=== PATIENT | male | born 1990 | race Caucasian/White ===

== ENCOUNTER 2017-03-28 14:00 | Emergency (ER) | payer OTHER ==
[2017-03-28 14:08] VITALS: PULSE 90; BMI 25.8
--- NOTE | 2017-03-28 14:31 | PDOC ---
History of Present Illness - History of Present Illness Initial Comments: 03/28/17 14:41 The patient is a 26 year old male, with a significant past medical history of pancreatitis, who presents to the emergency department with subjective fever, chills, abdominal pain, and diffuse body aches for a couple of weeks. He states he "feels hot", but states he has been "shivering and shaking nonstop." He reports taking ibuprofen this morning at 6:30AM for his fever. He reports mild, diffuse abdominal pain, but denies any aggravating or alleviating factors of his pain. He denies recent travels. He denies sick contact. The patient is afebrile at this time. He denies chest pain, shortness of breath, headache and dizziness. He denies nausea, vomit, diarrhea and constipation. He denies dysuria, frequency, urgency and hematuria. Allergies: NKDA, apples Past surgical history: appendectomy, cholecystectomy Social history: denies toxic habits <Nita Rogers - Last Filed: 03/28/17 14:48> <Lady Ng - Last Filed: 03/28/17 16:52> - General Chief Complaint: SIRS, Suspected/Possible Stated Complaint: FEVER Time Seen by Provider: 03/28/17 14:13 Past History <Nita Rogers - Last Filed: 03/28/17 14:48> - Past Medical History GI Disorders: Yes (PANCREATITIS) - Surgical History Appendectomy: Yes Cholecystectomy: Yes - Immunization History Td Vaccination: (unknown) Immunization Up to Date: Yes - Psycho/Social/Smoking Cessation Hx Anxiety: No Suicidal Ideation: No Smoking Status: No Smoking History: Never smoked Years of Tobacco Use: 0 Number of Cigarettes Smoked Daily: 0 Cigars Per Day: 0 Hx Alcohol Use: No Drug/Substance Use Hx: No Substance Use Type: None <Lady Ng - Last Filed: 03/28/17 16:52> - Past Medical History Allergies/Adverse Reactions: Allergies Allergy/AdvReac Type Severity Reaction Status Date / Time apple Allergy Itching Verified 03/28/17 14:08 No Known Drug Allergies Allergy Verified 03/28/17 14:08 Home Medications: Ambulatory Orders No Home Medications 0 dose .ROUTE UTDICT 12/25/12 Review of Systems - Review of Systems Able to Perform ROS?: Yes Comments:: 03/28/17 14:45 GENERAL/CONSTITUTIONAL: (+) fever, chills, generalized weakness. HEAD, EYES, EARS, NOSE AND THROAT: No change in vision. No ear pain or discharge. No sore throat. CARDIOVASCULAR: No chest pain or shortness of breath. RESPIRATORY: No cough, wheezing, or hemoptysis. GASTROINTESTINAL: (+) diffuse, mild abdominal pain. No nausea, vomiting, diarrhea or constipation. GENITOURINARY: No dysuria, frequency, or change in urination. MUSCULOSKELETAL: No joint or muscle swelling or pain. No neck or back pain. SKIN: No rash NEUROLOGIC: No headache, vertigo, loss of consciousness, or change in strength/ sensation. ENDOCRINE: No increased thirst. No abnormal weight change. HEMATOLOGIC/LYMPHATIC: No anemia, easy bleeding, or history of blood clots. ALLERGIC/IMMUNOLOGIC: No hives or skin allergy. <Nita Rogers - Last Filed: 03/28/17 14:48> *Physical Exam - Vital Signs Last Vital Signs Temp Pulse Resp BP Pulse Ox 98.6 F 90 20 130/74 100 03/28/17 14:03 03/28/17 14:03 03/28/17 14:03 03/28/17 14:03 03/28/17 14:03 <Nita Rogers - Last Filed: 03/28/17 14:48> - Vital Signs Last Vital Signs Temp Pulse Resp BP Pulse Ox 98.6 F 90 20 130/74 100 03/28/17 14:03 03/28/17 14:03 03/28/17 14:03 03/28/17 14:03 03/28/17 14:03 - Physical Exam Comments: GENERAL: Awake, alert, and fully oriented. Wrapped in multiple blankets, shaking in his extremities. HEAD: No signs of trauma EYES: PERRLA, EOMI, sclera anicteric, conjunctiva clear ENT: Auricles normal inspection, hearing grossly normal, nares patent, oropharynx clear without exudates. Moist mucosa NECK: Normal ROM, supple, no lymphadenopathy, JVD, or masses LUNGS: Breath sounds equal, clear to auscultation bilaterally. No wheezes, and no crackles HEART: Regular rate and rhythm, normal S1 and S2, no murmurs, rubs or gallops ABDOMEN: Soft, nontender, normoactive bowel sounds. No guarding, no rebound. No masses EXTREMITIES: Normal range of motion, no edema. No clubbing or cyanosis. No cords, erythema, or tenderness NEUROLOGICAL: Cranial nerves II through XII grossly intact. Normal speech, normal gait SKIN: Warm, Dry, normal turgor, no rashes or lesions noted. <Lady Ng - Last Filed: 03/28/17 16:52> ED Treatment Course - LABORATORY CBC & Chemistry Diagram: 03/28/17 15:00 03/28/17 15:00 <Lady Ng - Last Filed: 03/28/17 16:52> Medical Decision Making - Medical Decision Making 03/28/17 16:52 Pt reassessed. Sitting upright in bed, reports resolution of symptoms. Tremors have resolved. Denies any symptoms at present. Eating a sandwich. Stable for DC. We discussed the mild transaminitis, will f/u with PMD. <Lady Ng - Last Filed: 03/28/17 16:52> *DC/Admit/Observation/Transfer - Attestations Scribe Attestion: 03/28/17 14:48 Documentation prepared by Nita Rogers, acting as medical collections representative for Lady Ng MD, <Nita Rogers - Last Filed: 03/28/17 14:48> - Discharge Dispostion Admit: No <Lady Ng - Last Filed: 03/28/17 16:52> Diagnosis at time of Disposition: Fever Qualifiers: Fever type: unspecified Qualified Code(s): R50.9 - Fever, unspecified - Discharge Dispostion Disposition: HOME Condition at time of disposition: Improved - Referrals Referrals: Luzma Kay [Primary Care Provider] - - Patient Instructions Printed Discharge Instructions: DI for Fever (Symptom) -- Adult
[2017-03-28] MEDS ORDERED: KETOROLAC TROMETHAMINE 30 MG/1 ML VIAL IVPUSH ONE (14:37)
[2017-03-28] MEDS ORDERED: SODIUM CHLORIDE 1,000 ML IV STA (14:37)
[2017-03-28] MEDS ORDERED: KETOROLAC TROMETHAMINE 30 MG/1 ML VIAL ONE (14:47)
[2017-03-28 15:08] LABS: MCH 30.5 pg (25.7-33.7); MCHC 34.8 g/dl (32.0-35.9); MEAN CELL VOLUME 87.6 fl (80-96); MEAN PLT VOLUME 10.9 fl (7.5-11.1); RDW 12.9 % (11.9-15.9); WHITE BLOOD COUNT 10.4 K/mm3 (4.0-10.0)
[2017-03-28 15:30] LABS: ALBUMIN 3.7 g/dl (3.4-5.0); ANION GAP 11 (8-16); BILIRUBIN,TOTAL 0.9 mg/dL (0.2-1.0); CALCIUM 8.7 mg/dL (8.5-10.1); CO2 24 mmol/L (21-32); COCKROFT - GAULT 118.55; CREATININE 1.1 mg/dL (0.7-1.3); GLUCOSE,RANDOM 96 mg/dL (74-106); SGOT/AST 67 U/L (15-37); SGPT/ALT 110 U/L (12-78); TOT PROT 6.8 g/dl (6.4-8.2)
[2017-03-28 15:31] LABS: ALK PHOS 118 U/L (45-117)
[2017-03-28 15:43] VITALS: TEMP 99.6
[2017-03-28 15:46] LABS: URINE APPEARANCE CLEAR; URINE BILIRUBIN NEGATIVE (NEGATIVE); URINE COLOR YELLOW; URINE GLUCOSE (UA) NEGATIVE (NEGATIVE); URINE KETONE 1+ (NEGATIVE); URINE LEUK ESTERASE NEGATIVE (NEGATIVE); URINE NITRITE NEGATIVE (NEGATIVE); URINE PROTEIN NEGATIVE (NEGATIVE); URINE UROBILINOGEN NEGATIVE E.U./dl (0.2-1.0)
[2017-03-28 15:53] LABS: URINE BLOOD 1+ (NEGATIVE)
[2017-03-28 15:54] LABS: URINE BACTERIA RARE /hpf (NONE SEEN); URINE MUCUS RARE; URINE RBC <1 /hpf (0-3); URINE WBC 3 /hpf (3-5)
[2017-03-28 16:18] LABS: METAMYELOCYTE 4 % (0-2)
[2017-03-28 16:19] LABS: PLATELET ESTIMATE SLT DECREASED (NORMAL)
--- NOTE | 2017-03-28 16:22 | EKG ---
Test Reason : Blood Pressure : / mmHG Vent. Rate : 078 BPM Atrial Rate : 078 BPM P-R Int : 130 ms QRS Dur : 092 ms QT Int : 382 ms P-R-T Axes : 017 059 -01 degrees QTc Int : 435 ms NORMAL SINUS RHYTHM NONSPECIFIC T WAVE ABNORMALITY ABNORMAL ECG NO PREVIOUS ECGS AVAILABLE Confirmed by ROVERTO ROSAS MD ([id number]) on 03/28/2017 4:22:27 PM Referred By: Confirmed By:ROVERTO ROSAS MD
[2017-03-28 17:08] VITALS: BP 128/69
== END 2017-03-28 17:08 | disposition home or self-care (01) ==
LOC: JER 14:00
PROC: 3E0333Z Introduction of Anti-inflammatory into Peripheral Vein, Percutaneous Approach (ICD-10-PCS; principal; 2017-03-28)
DX: R50.9 Fever, unspecified (principal); Z87.19 Personal history of other diseases of the digestive system
CPT/HCPCS: 36415; 71010-TC; 80053; 81003; 81015; 83605; 83690; 85025; 87040; 87086; 93005; 93010; 96374; 99285-25

== ENCOUNTER 2021-12-09 05:14 | Emergency (ER) | payer OTHER ==
[2021-12-09 05:30] VITALS: TEMP 97.9; BMI 22.9
[2021-12-09] MEDS ORDERED: ACETAMINOPHEN 1000 MG/100 ML BAG IVPB ONE (05:37)
[2021-12-09] MEDS ORDERED: SODIUM CHLORIDE 0.9% 500 ML INFUS.BAG IV ONE (05:38)
[2021-12-09] MEDS ORDERED: LORazepam 2 MG/ML SDV VIAL IVPUSH ONE (05:38)
[2021-12-09] MEDS ORDERED: ONDANSETRON 4 MG/2 ML VIAL IVPUSH ONE (05:39)
[2021-12-09] MEDS ORDERED: ACETAMINOPHEN INJECTION 100 ML IVPB ONE (05:44)
[2021-12-09] MEDS ORDERED: ONDANSETRON 4 MG/2 ML VIAL ONE (05:44)
[2021-12-09 05:52] LABS: HEMATOCRIT 44.2 % (35.4-49); HEMOGLOBIN 14.7 GM/dL (11.7-16.9); MCH 30.6 pg (25.7-33.7); MCHC 33.3 g/dl (32.0-35.9); MEAN CELL VOLUME 91.8 fl (80-96); PLATELET COUNT 277 10^3/uL (134-434); RBC 4.81 M/mm3 (4.00-5.60); RDW 12.7 % (11.9-15.9); WHITE BLOOD COUNT 13.9 K/mm3 (4.0-10.0)
[2021-12-09] MEDS ORDERED: HYDROmorphone HCL CARPU-JECT 2 MG/1 ML DISP.SYRIN IVPUSH ONE (05:59)
[2021-12-09] MEDS ORDERED: HYDROmorphone HCl 2 MG/ML VIAL ONE (06:01)
[2021-12-09 06:05] LABS: CHLORIDE 111 mmol/L (98-107); SODIUM 144 mmol/L (136-145)
[2021-12-09 06:08] LABS: ALBUMIN 4.2 g/dl (3.4-5.0); ANION GAP 10 MMOL/L (8-16); BLOOD UREA NITROGEN 7.4 mg/dL (7-18); CALCIUM 9.3 mg/dL (8.5-10.1); CO2 23 mmol/L (21-32); GLUCOSE,RANDOM 110 mg/dL (74-106); LIPASE 293 U/L (73-393)
[2021-12-09 06:11] LABS: CREATININE 1.2 mg/dL (0.55-1.3); SGOT/AST 17 U/L (15-37); SGPT/ALT 21 U/L (13-61)
[2021-12-09 06:13] LABS: BILIRUBIN,TOTAL 0.3 mg/dL (0.2-1); TOT PROT 7.2 g/dl (6.4-8.2)
[2021-12-09 06:14] LABS: ALK PHOS 109 U/L (45-117)
[2021-12-09 06:32] LABS: INR 1.34 (0.83-1.09); PROTHROMBIN TIME (PATIENT) 15.4 SEC (9.7-13.0)
[2021-12-09 06:35] LABS: ACTIVATED PTT 32.3 SECONDS (25.2-36.5)
[2021-12-09] MEDS ORDERED: KETOROLAC TROMETHAMINE 15 MG/ML VIAL IVPUSH ONE (06:52)
[2021-12-09] MEDS ORDERED: KETOROLAC TROMETHAMINE 15 MG/ML VIAL ONE (06:54)
[2021-12-09 07:19] LABS: PLATELET ESTIMATE NORMAL
[2021-12-09 07:36] LABS: CHOLESTEROL 132 mg/dL (50-200); TRIGLYCERIDES 67 mg/dL (0-150)
[2021-12-09 07:37] LABS: LDL CHOLESTEROL (ONLY SJRH) 83 mg/dL (5-100)
[2021-12-09 07:38] LABS: HDL CHOLESTEROL 39 mg/dL (40-60)
[2021-12-09 07:48] VITALS: BP 130/88; PULSE 84
[2021-12-09 09:41] LABS: EPI CELLS 8 /uL (0-25.1); HYALINE CASTS 3 /uL (0-3.1); URINE APPEARANCE Clear; URINE BACTERIA 32 /uL (0-1359); URINE BILIRUBIN Negative (NEGATIVE); URINE COLOR Yellow; URINE GLUCOSE (UA) Negative (NEGATIVE); URINE KETONE Negative (NEGATIVE); URINE LEUK ESTERASE Negative (NEGATIVE); URINE NITRITE Negative (NEGATIVE); URINE PROTEIN Negative (NEGATIVE); URINE RBC 1189 /uL (0-23.9); URINE UROBILINOGEN 0.2 mg/dL (0.2-1.0)
[2021-12-09 14:13] LABS: URINE WBC Occasional /uL (0-25.8)
== END 2021-12-09 10:44 | disposition home or self-care (01) ==
LOC: JER 05:14
PROC: 3E033GC Introduction of Other Therapeutic Substance into Peripheral Vein, Percutaneous Approach (ICD-10-PCS; principal; 2021-12-09)
DX: N20.0 Calculus of kidney (principal)
CPT/HCPCS: 36415; 74177-TC; 80053; 80061; 80307; 81003; 82550; 83690; 84484; 85025; 85610; 85730; 93005; 93010; 96374; 96375; 99285-25